=== PATIENT | male | born 1995 | race Caucasian/White ===

== ENCOUNTER 2017-05-25 00:41 | Emergency (ER) | payer OTHER ==
[2017-05-25 00:48] VITALS: BP 133/75
[2017-05-25] MEDS ORDERED: ONDANSETRON ODT 4 MG TABLET TL STA (00:55)
--- NOTE | 2017-05-25 01:09 | ED Physician Documentation ---
PD HPI NVD - Stated complaint Stated Complaint: VOMITING - Chief complaint Chief Complaint: Abd Pain - History obtained from History obtained from: Patient - History of Present Illness Timing - onset: Today Timing - details: Gradual onset, Still present Associated symptoms: Abdominal pain. No: Fever, Dizzy Contributing factors: Bad food Similar symptoms before: No diagnosis Recently seen: Not recently seen - Additonal information Additional information: Patient is a 21 year old male with no significant past medical history who is presenting to the emergency department for nausea, vomiting and diarrhea. patient states that he went out to dinner tonight and a few hours later he developed vomiting and diarrhea. patient states that he has had multiple episodes of both. Patient states that some of his vomit was [place] Upon initial evaluation in the emergency department patient was well appearing and in no distress. Review of Systems Constitutional: denies: Fever, Chills Eyes: denies: Decreased vision, Photophobia Ears: denies: Ear pain, Drainage/discharge Nose: denies: Congestion, Epistaxis Throat: reports: Reviewed and negative Cardiac: denies: Chest pain / pressure Respiratory: denies: Dyspnea, Cough GI: reports: Abdominal Pain, Nausea, Vomiting, Diarrhea : reports: Reviewed and negative Skin: reports: Reviewed and negative Musculoskeletal: reports: Reviewed and negative Neurologic: reports: Generalized weakness, Near syncope, Syncope Immunocompromised: denies: Immunocompromised PD PAST MEDICAL HISTORY - Past Medical History Past Medical History: No - Past Surgical History Past Surgical History: No - Present Medications Home Medications: Ambulatory Orders Medication Instructions Recorded Confirmed Ondansetron Odt [Zofran] 4 mg TL Q6H PRN #20 tablet 05/25/17 - Allergies Allergies/Adverse Reactions: Allergies Allergy/AdvReac Type Severity Reaction Status Date / Time No Known Drug Allergies Allergy Verified 05/25/17 00:45 - Social History Does the pt smoke?: No Smoking Status: Never smoker Does the pt drink ETOH?: No Does the pt have substance abuse?: No PD ED PE NORMAL - Vitals Vital signs reviewed: Yes - General General: Alert and oriented X 3, No acute distress, Well developed/nourished - HEENT HEENT: Atraumatic, PERRL, Moist mucous membranes - Neck Neck: Supple, no meningeal sign, No JVD - Respiratory Respiratory: No respiratory distress - Abdomen Abdomen: Soft, Non distended - Derm Derm: Normal color, Warm and dry, No rash - Extremities Extremities: No deformity, No edema - Neuro Neuro: Alert and oriented X 3, No motor deficit, No sensory deficit, Normal speech PD ED PE EXPANDED - Abdomen Abdomen: Tender to palpation, Generalized/diffuse. No: Rebound, Guarding Results - Vitals Vitals: Vital Signs - 24 hr 05/25/17 00:46 Temperature 36.8 C Heart Rate 113 H Respiratory 16 Rate Blood Pressure 133/75 H O2 Saturation 96 Oxygen O2 Source Room air PD MEDICAL DECISION MAKING - ED course Complexity details: reviewed old records, reviewed results, re-evaluated patient , considered differential, d/w patient ED course: Patient was seen and examined at bedside. patient was well appearing. patient was treated with zofran and was able to tolerate PO without difficulty. Patient required no further inpatient work up and was stable for discharge with outpatient follow up. Departure - Departure Disposition: Home, Self Care Clinical Impression: Gastroenteritis Instructions: ED Gastroenteritis Bacterial Follow-Up: primary,care provider [Other] - As Needed Prescriptions: Ondansetron Odt [Zofran] 4 mg TL Q6H PRN #20 tablet PRN Reason: Nausea / Vomiting Comments: Your symptoms are being caused by gastroenteritis, likely bacterial in nature. It is important to take the zofran for nausea and stay well hydrated with gatorade and electrolyte solutions. You can take immodium as needed for excessive diarrhea. You should follow up with your doctor if your symptoms persist for more than the next few days. You may return to the emergency department at any time for new, worsening or uncontrollable symptoms. Forms: Activity restrictions
[2017-05-25] MEDS ORDERED: ONDANSETRON ODT 4 MG Prepack 2 TL PRN (01:11)
== END 2017-05-25 01:20 | disposition home or self-care (01) ==
LOC: ED 00:41
DX: K52.9 Noninfective gastroenteritis and colitis, unspecified (principal)
CPT/HCPCS: 99283; Q0162